=== PATIENT | female | born 1950 | race Caucasian/White ===

== ENCOUNTER → 2017-10-23 07:01 | Outpatient (CLI) | payer MEDICARE, BC, SELFPAY ==
[2017-10-23 07:40] LABS: ALT 24 U/L (12-78); AST 17 U/L (15-37); Albumin 3.8 g/dL (3.4-5.0); Alkaline Phosphatase 63 U/L (46-116); Bilirubin, Total 0.7 mg/dL (0.2-1.0); Total Protein 6.9 g/dL (6.4-8.2)
[2017-10-23 08:02] LABS: Cholesterol 153 mg/dL (50-200); HDL Cholesterol 80 mg/dL (40-60); LDL CHOLESTEROL 71 mg/dL (<100); Triglyceride 29 mg/dL (30-150)
== END ==
PROVIDERS: PCP Nurse Practitioner; Visit Provider Internal Medicine Cardiovascular Disease
DX: E78.5 Hyperlipidemia, unspecified (principal)
CPT/HCPCS: 36415; 80061; 80076; 83721

== ENCOUNTER 2018-04-15 07:07 | Outpatient (CLI) | payer MEDICARE, BC, SELFPAY ==
[2018-04-15 08:05] LABS: ALT 31 U/L (12-78); AST 18 U/L (15-37); Albumin 3.8 g/dL (3.4-5.0); Alkaline Phosphatase 56 U/L (46-116); Bilirubin, Total 0.8 mg/dL (0.2-1.0); Cholesterol 160 mg/dL (50-200); HDL Cholesterol 80 mg/dL (40-60); LDL CHOLESTEROL 69 mg/dL (<100); Total Protein 6.8 g/dL (6.4-8.2); Triglyceride 31 mg/dL (30-150)
== END 2018-04-15 07:27 ==
PROVIDERS: PCP Nurse Practitioner; Visit Provider Internal Medicine Cardiovascular Disease
DX: E78.5 Hyperlipidemia, unspecified (principal)
CPT/HCPCS: 36415; 80061; 80076; 83721

== ENCOUNTER 2018-08-11 07:21 | Outpatient (CLI) | payer MEDICARE, BC, SELFPAY ==
[2018-08-11 07:48] LABS: Absolute Basophil Count 0.05 k/cumm (0.0-0.2); Absolute Eosinophil Count 0.08 k/cumm (0.0-0.7); Absolute Lymphocyte Count 1.24 k/cumm (1.2-3.4); Absolute Monocyte Count 0.52 k/cumm (0.11-0.7); Absolute Neutrophil Count 1.55 k/cumm (1.2-6.7); Basophils % 1.5; Eosinophils % 2.3; HCT 40.5 % (36.0-46.0); HGB 13.8 g/dL (12.0-15.5); Mean Corp. HGB Concentration 34.1 g/dL (32.0-36.0); Mean Corpuscular Hemoglobin 28.7 pg (27.0-33.0); Mean Corpuscular Volume 84.2 fL (80-95); Mean Platelet Volume 9.4 fL (8.0-11.0); Monocytes % 15.1; Neutrophils % 45.1; Platelet Count 263 x1000/uL (130-400); RBC 4.81 m/cumm (4.00-5.20); RBC Distribution Width 13.5 % (11.7-14.6); White Blood Cell Count 3.44 k/cumm (4.4-10.8)
[2018-08-11 09:07] LABS: ALT 27 U/L (12-78); AST 23 U/L (15-37); Albumin 3.9 g/dL (3.4-5.0); Alkaline Phosphatase 59 U/L (46-116); Anion Gap 9.7 mmol/L (3-11); BUN 17 mg/dL (7-18); Bilirubin, Total 0.7 mg/dL (0.2-1.0); CO2 27.3 mmol/L (21.0-32.0); CREATININE 0.74 mg/dL (0.55-1.02); Calculated LDL 70; Chloride 104 mmol/L (98-107); Cholesterol 155 mg/dL (50-200); Glucose 90 mg/dL (70-100); HDL Cholesterol 80 mg/dL (40-60); Potassium 4.1 mmol/L (3.5-5.1); Sodium 141 mmol/L (136-145); TSH 4.17 uIU/mL (0.358-3.74); Total Protein 6.6 g/dL (6.4-8.2); Triglyceride 28 mg/dL (30-150)
[2018-08-11 09:20] LABS: Vitamin D 25 Total 53.9 ng/ml (30-100)
== END 2018-08-11 07:41 ==
PROVIDERS: PCP Nurse Practitioner; Visit Provider Nurse Practitioner
DX: E78.00 Pure hypercholesterolemia, unspecified (principal); E55.9 Vitamin D deficiency, unspecified; E03.9 Hypothyroidism, unspecified
CPT/HCPCS: 36415; 80053; 80061; 82306; 83721; 84443; 85025

== ENCOUNTER 2018-09-12 15:26 | Outpatient (CLI) | payer MEDICARE, BC, SELFPAY ==
[2018-09-12 15:49] LABS: Absolute Basophil Count 0.05 k/cumm (0.0-0.2); Absolute Eosinophil Count 0.11 k/cumm (0.0-0.7); Absolute Lymphocyte Count 2.07 k/cumm (1.2-3.4); Absolute Monocyte Count 0.78 k/cumm (0.11-0.7); Absolute Neutrophil Count 2.94 k/cumm (1.2-6.7); Basophils % 0.8; Eosinophils % 1.8; HCT 39.3 % (36.0-46.0); HGB 13.3 g/dL (12.0-15.5); Lymphocytes % 34.8; Mean Corp. HGB Concentration 33.8 g/dL (32.0-36.0); Mean Corpuscular Hemoglobin 28.3 pg (27.0-33.0); Mean Corpuscular Volume 83.6 fL (80-95); Mean Platelet Volume 9.6 fL (8.0-11.0); Monocytes % 13.1; Neutrophils % 49.5; Platelet Count 276 x1000/uL (130-400); RBC Distribution Width 13.6 % (11.7-14.6); White Blood Cell Count 5.95 k/cumm (4.4-10.8)
== END 2018-09-12 15:46 ==
PROVIDERS: PCP Nurse Practitioner; Visit Provider Nurse Practitioner
DX: E78.00 Pure hypercholesterolemia, unspecified (principal)
CPT/HCPCS: 36415; 85025

== ENCOUNTER 2019-05-06 15:52 | Outpatient (CLI) | payer MEDICARE, BC, SELFPAY ==
[2019-05-06 16:34] LABS: Bilirubin Negative (Negative); Blood Moderate (Negative); Clarity Cloudy (Clear); Glucose Negative (Negative); Ketones Negative (Negative); Leukocyte Esterase Large (Negative); Nitrite Positive (Negative); Specific Gravity >= 1.030 (1.005-1.025); Urobilinogen 0.2 EU/dL (Up TO 0.2); pH 5.5 (5-8)
[2019-05-06 17:41] LABS: Bacteria Packed HPF (Negative); C & S Indicated? C&S Done As Ordered; WBC >50 HPF (0-5)
== END 2019-05-06 16:12 ==
PROVIDERS: PCP Nurse Practitioner; Visit Provider Nurse Practitioner
DX: R30.0 Dysuria (principal)
CPT/HCPCS: 87077; 81003; 81015; 87086; 87186

== ENCOUNTER 2020-06-10 02:35 | Outpatient (CLI) | payer MEDICARE, BC, SELFPAY ==
[2020-06-10 07:52] LABS: Abs Immature Grans 0.01 10^3/uL (0.0-0.06); Absolute Basophil Count 0.08 10^3/uL (0.0-0.2); Absolute Eosinophil Count 0.08 10^3/uL (0.0-0.7); Absolute Lymphocyte Count 2.35 10^3/uL (1.2-3.4); Absolute Monocyte Count 0.58 10^3/uL (0.1-0.8); Absolute Neutrophil Count 1.93 10^3/uL (1.2-6.7); Basophils % 1.6; Eosinophils % 1.6; HCT 42.5 % (36.0-46.0); HGB 14.1 g/dL (11.2-15.7); Immature Grans % 0.2; Lymphocytes % 46.7; MCH 28.7 pg (27.0-33.0); MCHC 33.2 % (32.0-36.0); MCV 86.4 fL (80-95); MPV 9.4 fL (8.0-11.0); Monocytes % 11.5; Neutrophils % 38.4; Nucleated RBC 0 %; Platelet Count 279 10^3/uL (130-400); RBC 4.92 10^6/uL (3.93-5.22); RDW 13.5 % (11.7-14.6); RDW-SD 42.5 fL; WBC 5.03 10^3/uL (4.4-10.8)
[2020-06-10 09:05] LABS: ALT 25 U/L (14-59); AST 17 U/L (15-37); Albumin 4.1 g/dL (3.4-5.0); Alkaline Phosphatase 63 U/L (46-116); Anion Gap 8.1 mmol/L (3-11); BUN 23 mg/dL (7-18); Bilirubin, Total 0.8 mg/dL (0.2-1.0); CO2 30.9 mmol/L (21.0-32.0); CREATININE 0.8 mg/dL (0.55-1.02); Calcium 9.1 mg/dL (8.5-10.1); Calculated LDL 74 mg/dL (<100); Chloride 103 mmol/L (98-107); Cholesterol 167 mg/dL (<200); Glucose 90 mg/dL (74-106); HDL Cholesterol 85 mg/dL (40-60); Potassium 4.3 mmol/L (3.5-5.1); Sodium 142 mmol/L (136-145); TSH 4.44 uIU/mL (0.36-3.74); Total Protein 6.9 g/dL (6.4-8.2); Triglyceride 43 mg/dL (<150)
== END 2020-06-10 02:36 | disposition home or self-care (01) ==
LOC: LBO 02:35
PROVIDERS: PCP Nurse Practitioner; Visit Provider Nurse Practitioner
DX: E78.00 Pure hypercholesterolemia, unspecified (principal); I10 Essential (primary) hypertension; E03.9 Hypothyroidism, unspecified
CPT/HCPCS: 36415; 80053; 80061; 84443; 85025

== ENCOUNTER 2020-09-07 02:44 | Outpatient (CLI) | payer MEDICARE, BC, SELFPAY | END 2020-09-07 02:45 | disposition home or self-care (01) | LOC: LBO 02:44 | PROVIDERS: PCP Nurse Practitioner; Visit Provider Nurse Practitioner | DX: E03.9 Hypothyroidism, unspecified (principal) | CPT/HCPCS: 36415; 84443 ==

== ENCOUNTER 2020-09-24 11:53 | Emergency (ER) | payer MEDICARE, BC, SELFPAY ==
[2020-09-24 11:56] VITALS: BP 161/88; PULSE 58; RESP 16; TEMP 36.3; O2SAT 97
--- NOTE | 2020-09-24 12:15 | ED.GENADUL_ITS ---
Discharge Plan Disposition Patient Disposition: HOME Condition: Stable Discharge Details Clinical Impression: Abrasion Primary Care Provider: Nancy Crook ED Provider: Shilo Vera Home Meds and New Rx's Prescriptions: Continued losartan 25 MG tablet 25 mg PO DAILY RF: 0 cholecalciferol (vitamin D3) 1,000 UNITS tablet 1,000 mg PO DAILY RF: 0 (DME) inhalational spacing device [Aerochamber MV] 1 EACH spacer 1 ea Miscellaneous DIRECTED Qty: 1 RF: 0 metoprolol succinate 25 mg tablet extended release 24 hr 25 mg PO DAILY RF: 0 rosuvastatin 10 mg tablet 10 mg PO DAILY RF: 0 Eliquis 5 mg tablet 5 mg PO DAILY RF: 0 Discharge Instructions Instructions: Abrasion (ED) Additional Instructions: Tetanus was updated today. Abrasion appears well, please continue to keep it clean and apply antibiotic ointment. Watch for new or worsening symptoms and return to the ER for any concerns. Medical Decision Making 70-year-old female presents requesting a tetanus shot. Sustained a small abrasion after being poked with a metal wire. She appears well, nontoxic and is otherwise asymptomatic. Wound was already thoroughly cleaned. Clinically she is neuro, vascular, tendon intact. Wound appears to be an abrasion not a laceration or puncture wound. Discussed x-ray in the setting, patient declines. I believe this to be perfectly reasonable. Will update tetanus status. Medical Records Medical records reviewed: Yes I reviewed the patient's medical records. HPI General Mode of arrival: ambulatory . Date/Time Provider Initiated Documentation: 09/24/20 12:01 . Limitations to Documentation: no limitations . Information obtained by: patient . HPI Narrative: This is a 70-year-old female presents to the ER today requesting a tetanus shot after sustaining a right leg wound. She states earlier today she was bringing out the recycling trash, a piece of wire poked through her pants, breaking the skin. Reports that she cleaned the area thoroughly and placed antibiotic ointment. Denies any pain or bleeding. No numbness, tingling, weakness or fever. Patient is asymptomatic but reports that her tetanus status is greater than 10 years ago and knows that she needs to have it updated. Related Data Home Medications Medication Instructions Recorded Confirmed losartan 25 mg PO DAILY 06/11/12 09/24/20 cholecalciferol (vitamin D3) 1,000 mg PO DAILY 06/05/14 09/24/20 inhalational spacing device #1 spacer 06/11/15 04/24/17 [Aerochamber MV] Eliquis 5 mg PO DAILY 09/24/20 09/24/20 metoprolol succinate 25 mg PO DAILY 09/24/20 09/24/20 rosuvastatin 10 mg PO DAILY 09/24/20 09/24/20 Previous Rx's Medication Instructions Recorded inhalational spacing device #1 spacer 06/11/15 [Aerochamber MV] Allergies Allergy/AdvReac Type Severity Reaction Status Date / Time latex Allergy Unverified 09/24/20 12:02 Penicillins Allergy unknown Unverified 09/24/20 12:02 General Stated Complaint: Laceration ANISH: 4 Review of Systems Constitutional Constitutional: Denies fever(s) Musculoskeletal Musculoskeletal: Denies numbness and Denies tingling Integumentary/Breasts Skin/Breast: Denies erythema Neurologic Neurologic: Denies numbness and Denies tingling FOR[facility] Social History Smoking/Tobacco Use Status: Former Tobacco Use Smoking risk assessment performed?: Yes Alcohol Intake: never Drug use: Never Do you feel safe at home: Yes Do you feel safe in your relationship?: Yes Exam Const General: cooperative, healthy appearing, comfortable and no acute distress Orientation: alert, awake and oriented x3 HENMT Head: normal to inspection, normocephalic and atraumatic Eyes General: appearance normal, both eyes and all related structures Conjunctivae: conjunctivae normal Neck Neck: normal visual inspection, trachea midline and supple Resp Effort & Inspection: normal respiratory effort and able to speak in complete sentences Skin General skin exam: no rashes or lesions noted Neuro General: patient alert, patient awake, moves all extremities and no focal motor deficits Cognition: normal cognition Speech: speech normal Gait: normal gait Motor: muscle tone normal throughout Sensory Exam: no sensory deficits noted Extrem General: full ROM Upper/lower leg/hip images: 1. Abrasion. Without discomfort, erythema, warmth, drainage or foreign body. Psych Appearance: grossly normal Mental Status: mental status grossly normal Course Vital Signs Vital signs: Vital Signs Temperature 36.3 C L 09/24/20 11:56 Pulse 58 L 09/24/20 11:56 Respiratory Rate 16 09/24/20 11:56 Blood Pressure 161/88 H 09/24/20 11:56 Pulse Oximetry 97 09/24/20 11:56 Temperature 36.3 C L 09/24/20 11:56 Temperature Source Temporal Artery Scan 09/24/20 11:56 Pulse 58 L 09/24/20 11:56 Respiratory Rate 16 09/24/20 11:56 Respiratory Effort Non-Labored 09/24/20 12:01 Blood Pressure 161/88 H 09/24/20 11:56 Blood Pressure Position Sitting 09/24/20 11:56 Pulse Oximetry 97 09/24/20 11:56 Oxygen Delivery Method Room Air 09/24/20 11:56 Oxygen Flow Rate 0 09/24/20 11:56 Pain Level 0 09/24/20 12:05
== END 2020-09-24 12:35 | disposition home or self-care (01) ==
PROVIDERS: Emergency Provider Physician Assistant; PCP Nurse Practitioner
DX: S70.311A Abrasion, right thigh, initial encounter (principal); W26.8XXA Contact with other sharp object(s), not elsewhere classified, initial encounter
CPT/HCPCS: 90471; 99284; 99282

== ENCOUNTER 2021-04-05 03:16 | Outpatient (CLI) | payer MEDICARE, SELFPAY ==
[2021-04-05 08:00] LABS: Abs Immature Grans 0.01 10^3/uL (0.0-0.06); Absolute Basophil Count 0.09 10^3/uL (0.0-0.2); Absolute Eosinophil Count 0.11 10^3/uL (0.0-0.7); Absolute Lymphocyte Count 2.03 10^3/uL (1.2-3.4); Absolute Monocyte Count 0.62 10^3/uL (0.1-0.8); Absolute Neutrophil Count 3.44 10^3/uL (1.2-6.7); Basophils % 1.4; Eosinophils % 1.7; HCT 43.4 % (36.0-46.0); HGB 14.3 g/dL (11.2-15.7); Immature Grans % 0.2; Lymphocytes % 32.2; MCH 28.1 pg (27.0-33.0); MCHC 32.9 % (32.0-36.0); MCV 85.4 fL (80-95); MPV 9.9 fL (8.0-11.0); Monocytes % 9.8; Neutrophils % 54.7; Nucleated RBC 0 %; Platelet Count 265 10^3/uL (130-400); RBC 5.08 10^6/uL (3.93-5.22); RDW 13.3 % (11.7-14.6); RDW-SD 41.8 fL
[2021-04-05 09:51] LABS: ALT 31 U/L (14-59); AST 20 U/L (15-37); Albumin 4.4 g/dL (3.4-5.0); Alkaline Phosphatase 65 U/L (46-116); BUN 17 mg/dL (7-18); Bilirubin, Total 0.9 mg/dL (0.2-1.0); CREATININE 0.7 mg/dL (0.55-1.02); Calcium 9.1 mg/dL (8.5-10.1); Calculated LDL 70 mg/dL (<100); Chloride 105 mmol/L (98-107); Cholesterol 178 mg/dL (<200); Glucose 94 mg/dL (74-106); HDL Cholesterol 99 mg/dL (40-60); Potassium 4.1 mmol/L (3.5-5.1); Sodium 142 mmol/L (136-145); Total Protein 7.3 g/dL (6.4-8.2); Triglyceride 46 mg/dL (<150)
[2021-04-07 17:09] LABS: 25-Hydroxy D Total 45 ng/mL; 25-Hydroxy D2 <4.0 ng/mL; 25-Hydroxy D3 45 ng/mL
== END 2021-04-05 03:17 | disposition home or self-care (01) ==
LOC: LBO 03:16
PROVIDERS: PCP Nurse Practitioner; Visit Provider Nurse Practitioner
DX: I10 Essential (primary) hypertension; E03.9 Hypothyroidism, unspecified; E55.9 Vitamin D deficiency, unspecified; E78.00 Pure hypercholesterolemia, unspecified; I77.810 Thoracic aortic ectasia
CPT/HCPCS: 36415; 80053; 80061; 82306; 84443; 85025

== ENCOUNTER 2021-05-30 02:56 | Outpatient (CLI) | payer MEDICARE, SELFPAY ==
[2021-05-30 08:58] LABS: TSH 4.16 uIU/mL (0.36-3.74)
[2021-06-01 14:05] LABS: Vitamin D 25 Total 52.5 ng/mL (30-100)
== END 2021-05-30 02:57 | disposition home or self-care (01) ==
LOC: LBO 02:56
PROVIDERS: PCP Nurse Practitioner; Visit Provider Nurse Practitioner
DX: E03.9 Hypothyroidism, unspecified (principal); E55.9 Vitamin D deficiency, unspecified
CPT/HCPCS: 36415; 82306; 84443

== ENCOUNTER 2022-02-21 11:24 | Outpatient (REF) | payer MEDICARE, SELFPAY ==
[2022-02-21 13:20] LABS: Bilirubin Negative (Negative); Blood Trace-lysed (Negative); Clarity Clear (Clear); Glucose Negative (Negative); Ketones Negative (Negative); Leukocyte Esterase Trace (Negative); Nitrite Negative (Negative); Specific Gravity 1.015 (1.005-1.025); Urobilinogen 0.2 EU/dL (Up TO 0.2); pH 5.5 (5-8)
[2022-02-21 13:31] LABS: Bacteria Negative HPF (Negative); C & S Indicated? No/Sq. Contamination; Casts Negative LPF (Negative); Crystals Negative HPF (Negative); Epithelial Cells Moderate HPF (Negative); Mucus Negative (Negative); RBC 0-2 HPF (0-2); WBC 0-2 HPF (0-5)
== END 2022-02-21 11:25 | disposition home or self-care (01) ==
LOC: LBN 11:24
PROVIDERS: PCP Nurse Practitioner; Visit Provider Physician Assistant
DX: R39.15 Urgency of urination; R35.0 Frequency of micturition; R82.998 Other abnormal findings in urine
CPT/HCPCS: 81003; 81015

== ENCOUNTER 2022-08-01 04:29 | Outpatient (CLI) | payer MEDICARE, SELFPAY ==
[2022-08-01 12:46] LABS: ALT 44 U/L (14-59); AST 27 U/L (15-37); Albumin 3.9 g/dL (3.4-5.0); Alkaline Phosphatase 85 U/L (46-116); Anion Gap 5.7 mmol/L (3-11); BUN 22 mg/dL (7-18); Bilirubin, Total 0.6 mg/dL (0.2-1.0); CO2 29.3 mmol/L (21.0-32.0); CREATININE 0.8 mg/dL (0.55-1.02); Calcium 9.2 mg/dL (8.5-10.1); Chloride 106 mmol/L (98-107); Estimated GFR 77.27 (mL/min/1.73m2); Glucose 87 mg/dL (74-106); Sodium 141 mmol/L (136-145); Total Protein 7.1 g/dL (6.4-8.2)
== END 2022-08-01 04:30 | disposition home or self-care (01) ==
LOC: LOS 04:29
PROVIDERS: PCP Nurse Practitioner; Visit Provider Nurse Practitioner
DX: R79.89 Other specified abnormal findings of blood chemistry (principal)
CPT/HCPCS: 36415; 80053

== ENCOUNTER 2022-08-06 13:08 | Outpatient (REF) | payer MEDICARE, SELFPAY ==
[2022-08-06 20:55] LABS: Abs Immature Grans 0.01 10^3/uL (0.0-0.06); Absolute Basophil Count 0.06 10^3/uL (0.0-0.2); Absolute Eosinophil Count 0.05 10^3/uL (0.0-0.7); Absolute Lymphocyte Count 2.19 10^3/uL (1.2-3.4); Absolute Monocyte Count 0.46 10^3/uL (0.1-0.8); Absolute Neutrophil Count 2.86 10^3/uL (1.2-6.7); Basophils % 1.1; Eosinophils % 0.9; HCT 43.6 % (36.0-46.0); HGB 14.7 g/dL (11.2-15.7); Immature Grans % 0.2; Lymphocytes % 38.9; MCH 28.9 pg (27.0-33.0); MCHC 33.7 % (32.0-36.0); MCV 86 fL (80-95); MPV 10.1 fL (8.0-11.0); Monocytes % 8.2; Neutrophils % 50.7; Platelet Count 279 10^3/uL (130-400); RBC 5.09 10^6/uL (3.93-5.22); RDW 13.8 % (11.7-14.6); RDW-SD 43.5 fL; WBC 5.63 10^3/uL (4.4-10.8)
[2022-08-06 20:58] LABS: ESR 2 mm/hr (0-30)
[2022-08-08 10:32] LABS: Lyme Ab w Rflx to Lyme Confirm Negative (Negative)
[2022-08-10 15:46] LABS: Anaplasma phagocytophilum Negative (Negative); B. miyamotoi PCR Negative (Negative); Babesia divergens/MO-1 Negative (Negative); Babesia duncani Negative (Negative); Babesia microti Negative (Negative); Ehrlichia chaffeensis Negative (Negative); Ehrlichia ewingii/canis Negative (Negative); Ehrlichia muris eauclairensis Negative (Negative)
== END 2022-08-06 13:09 | disposition home or self-care (01) ==
LOC: LBN 13:08
PROVIDERS: PCP Nurse Practitioner; Visit Provider Physician Assistant
DX: R51.9 Headache, unspecified (principal)
CPT/HCPCS: 85652; 87798; 85025; 86618

== ENCOUNTER 2022-08-09 03:12 | Outpatient (CLI) | payer MEDICARE, SELFPAY ==
[2022-08-09 12:28] LABS: CREATININE 0.8 mg/dL (0.55-1.02); Estimated GFR 77.27 (mL/min/1.73m2)
== END 2022-08-09 03:13 | disposition home or self-care (01) ==
PROVIDERS: Physician Assistant Surgical; PCP Nurse Practitioner
DX: I77.810 Thoracic aortic ectasia (principal)
CPT/HCPCS: 36415; 82565

== ENCOUNTER 2022-12-17 04:47 | Outpatient (CLI) | payer MEDICARE, SELFPAY ==
[2022-12-17 12:34] LABS: TSH 6.52 uIU/mL (0.36-3.74)
== END 2022-12-17 04:48 | disposition home or self-care (01) ==
LOC: LOS 04:47
PROVIDERS: PCP Nurse Practitioner; Visit Provider Nurse Practitioner
DX: E03.9 Hypothyroidism, unspecified (principal)
CPT/HCPCS: 36415; 84443

== ENCOUNTER 2023-02-13 04:43 | Outpatient (CLI) | payer MEDICARE, SELFPAY ==
[2023-02-13 12:43] LABS: TSH 4.28 uIU/mL (0.36-3.74)
== END 2023-02-13 04:44 | disposition home or self-care (01) ==
LOC: LOS 04:43
PROVIDERS: PCP Nurse Practitioner; Visit Provider Nurse Practitioner
DX: E03.9 Hypothyroidism, unspecified (principal)
CPT/HCPCS: 36415; 84443

== ENCOUNTER 2023-07-03 05:25 | Outpatient (CLI) | payer MEDICARE, SELFPAY ==
[2023-07-03 12:16] LABS: Abs Immature Grans 0.01 10^3/uL (0.0-0.06); Absolute Basophil Count 0.06 10^3/uL (0.0-0.2); Absolute Eosinophil Count 0.09 10^3/uL (0.0-0.7); Absolute Lymphocyte Count 1.77 10^3/uL (1.2-3.4); Absolute Neutrophil Count 2.96 10^3/uL (1.2-6.7); Basophils % 1.1 %; Eosinophils % 1.6 %; HCT 42.9 % (36.0-46.0); HGB 13.9 g/dL (11.2-15.7); Immature Grans % 0.2 %; Lymphocytes % 32.2 %; MCH 28.3 pg (27.0-33.0); MCHC 32.4 % (32.0-36.0); MCV 87 fL (80-95); MPV 10.3 fL (8.0-11.0); Monocytes % 10.9 %; Platelet Count 220 10^3/uL (130-400); RBC 4.91 10^6/uL (3.93-5.22); RDW-SD 44.9 fL; WBC 5.49 10^3/uL (4.4-10.8)
[2023-07-03 12:37] LABS: AST 19 U/L (15-37); Albumin 3.8 g/dL (3.4-5.0); Alkaline Phosphatase 89 U/L (46-116); Anion Gap 8.3 mmol/L (3-11); BUN 28 mg/dL (7-18); CO2 28.7 mmol/L (21.0-32.0); CREATININE 0.8 mg/dL (0.55-1.02); Calcium 9.2 mg/dL (8.5-10.1); Calculated LDL 61 mg/dL (<100); Chloride 105 mmol/L (98-107); Cholesterol 151 mg/dL (<200); Estimated GFR 76.79 (mL/min/1.73m2); Glucose 102 mg/dL (74-106); HDL Cholesterol 78 mg/dL (40-60); Magnesium 2.1 mg/dL (1.8-2.4); Sodium 142 mmol/L (136-145); TSH 3.24 uIU/Ml (0.36-3.74); Triglyceride 61 mg/dL (<150)
[2023-07-03 12:59] LABS: ALT 30 U/L (14-59); Bilirubin, Total 0.5 mg/dL (0.2-1.0); Total Protein 6.7 g/dL (6.4-8.2)
== END 2023-07-03 05:26 | disposition home or self-care (01) ==
LOC: LOS 05:25
PROVIDERS: PCP Nurse Practitioner; Visit Provider Nurse Practitioner
DX: E78.00 Pure hypercholesterolemia, unspecified (principal)
CPT/HCPCS: 36415; 80053; 80061; 83735; 84443; 85025

== ENCOUNTER 2023-09-17 04:38 | Outpatient (CLI) | payer MEDICARE, SELFPAY ==
[2023-09-17 12:20] LABS: CREATININE 0.8 mg/dL (0.55-1.02); Estimated GFR 76.79 (mL/min/1.73m2)
== END 2023-09-17 04:39 | disposition home or self-care (01) ==
LOC: LOS 04:38
PROVIDERS: PCP Nurse Practitioner; Visit Provider Thoracic Surgery (Cardiothoracic Vascular Surgery)
DX: I77.810 Thoracic aortic ectasia (principal)
CPT/HCPCS: 36415; 82565

== ENCOUNTER 2024-09-23 15:45 | Outpatient (CLI) | payer MEDICARE, SELFPAY ==
--- NOTE | 2024-09-23 14:15 | DI.RAD_ITS ---
Exam(s) XR CERVICAL SPINE COMP 4-5V EXAM: XR CERVICAL SPINE COMP 4-5V CLINICAL HISTORY: evaluate pathology, NECK PAIN, CERVICALGIA M54.2. TECHNIQUE: 2D digital imaging was performed. Six images were obtained. AP, odontoid, lateral and bilateral oblique images were obtained. COMPARISON: No exams were available for comparison FINDINGS: The odontoid is intact. The lateral masses are well aligned. There is normal alignment of the cervical spine. There is disc space narrowing seen at C4-5 through C6-C7. There are endplate osteophytes from C3-C4 through C7-T1. There is narrowing of the neural foramen on the right at C3-C4 and to a lesser degree at C4-C5. There is mild narrowing of the neural foramen on the left at C5-6 and C6-C7. No acute fracture or subluxation is present. No significant neural foraminal stenosis is present. The cervical thoracic junction is well maintained. The prevertebral soft tissues are unremarkable. Lung apices are clear. 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 There is resultant neural foraminal narrowing at multiple levels. DATA REPOSITORY: RADIATION DOSE DELIVERED:
== END 2024-09-23 16:05 ==
LOC: DI 15:46
PROVIDERS: PCP Nurse Practitioner; Visit Provider Nurse Practitioner Family
DX: M50.021 Cervical disc disorder at C4-C5 level with myelopathy (principal); M99.61 Osseous and subluxation stenosis of intervertebral foramina of cervical region
CPT/HCPCS: 72050

== ENCOUNTER 2024-09-23 15:47 | Outpatient (CLI) | payer MEDICARE, SELFPAY ==
[2024-09-23 15:41] LABS: ESR 3 mm/hr (0-30)
[2024-09-23 15:42] LABS: Abs Immature Grans 0.01 10^3/uL (0.0-0.06); HCT 41.7 % (36.0-46.0); HGB 14.1 g/dL (11.2-15.7); Immature Grans % 0.1 %; MCH 28.7 pg (27.0-33.0); MCHC 33.8 % (32.0-36.0); MCV 85 fL (80-95); MPV 9.3 fL (8.0-11.0); Platelet Count 207 10^3/uL (130-400); RBC 4.91 10^6/uL (3.93-5.22); RDW 13.8 % (11.7-14.6); RDW-SD 43.0 fL; WBC 7.60 10^3/uL (4.4-10.8)
[2024-09-23 16:59] LABS: Anion Gap 8.1 mmol/L (3-11); BUN 17 mg/dL (7-18); CO2 27.9 mmol/L (21.0-32.0); Calcium 9.5 mg/dL (8.5-10.1); Chloride 102 mmol/L (98-107); Estimated GFR 89.58 (mL/min/1.73m2); Glucose 99 mg/dL (74-106); Potassium 3.8 mmol/L (3.5-5.1); Sodium 138 mmol/L (136-145)
[2024-09-25 10:25] LABS: Lyme Ab w Rflx to Lyme Confirm Negative (Negative)
[2024-09-28 15:39] LABS: B. miyamotoi PCR Negative (Negative); Babesia divergens/MO-1 Negative (Negative); Ehrlichia muris eauclairensis Negative (Negative)
== END 2024-09-23 15:48 | disposition home or self-care (01) ==
LOC: LBO 15:48
PROVIDERS: PCP Nurse Practitioner; Visit Provider Nurse Practitioner Family
DX: M25.511 Pain in right shoulder (principal); W57.XXXA Bitten or stung by nonvenomous insect and other nonvenomous arthropods, initial encounter; R53.83 Other fatigue
CPT/HCPCS: 36415; 80048; 85652; 87798; 85025; 86618